=== PATIENT | female | born 1970 | race Caucasian/White ===

== ENCOUNTER 2017-02-23 17:44 | Emergency (ER) | payer BC, OTHER | END 2017-02-23 18:03 | disposition home or self-care (01) | LOC: E/R 18:03 | DX: J06.9 Acute upper respiratory infection, unspecified (principal) | CPT/HCPCS: 99283 ==

== ENCOUNTER 2017-05-01 15:40 | Emergency (ER) | payer OTHER, BC ==
[2017-05-01] MEDS: DEXAMETHASONE 10 MG/ML 1 ML INJ IM (19:48)
[2017-05-01] MEDS: LIDOCAINE/MYLANTA 40 ML BTL PO (19:54)
[2017-05-01] MEDS: RANITIDINE 150 MG TAB PO (20:39)
== END 2017-05-01 20:51 | disposition home or self-care (01) ==
LOC: E/R 15:40 → FTE 20:51
DX: R13.10 Dysphagia, unspecified (principal); K21.9 Gastro-esophageal reflux disease without esophagitis
CPT/HCPCS: 99283; J1100

== ENCOUNTER 2017-10-27 19:19 | Emergency (ER) | payer BC, OTHER ==
[2017-10-27] MEDS: ONDANSETRON (ODT) 4 MG TAB ODT (20:53)
[2017-10-27] MEDS: ACET/BUTAL/CAFF TAB PO (20:59)
== END 2017-10-27 21:20 | disposition home or self-care (01) ==
LOC: FTE 19:19
DX: G44.209 Tension-type headache, unspecified, not intractable (principal)
CPT/HCPCS: 99284